=== PATIENT | male | born 1960 | race American Indian/Alaskan Native ===

== ENCOUNTER 2018-10-08 01:21 | Emergency (ER) | payer SELFPAY ==
[2018-10-08] MEDS ORDERED: NACL 0.9% 1000 ML 1,000 ML IV ONE ×2 (01:43→02:34)
[2018-10-08 02:06] LABS: Hematocrit 43.4 % (35.5-45.6); Hemoglobin 14.7 gm/dl (11.8-15.2); Mean Corpuscular HGB Conc 34 % (32-34); Mean Corpuscular Volume 89 fl (84-94); Platelet Count 172 K/mm3 (140-440); Red Blood Count 4.88 M/mm3 (3.65-5.03)
[2018-10-08 02:16] LABS: Alanine Aminotransferase 9 units/L (7-56); Albumin 3.6 g/dL (3.9-5); BUN/Creatinine Ratio 14; Blood Urea Nitrogen 13 mg/dL (9-20); Calcium 8.3 mg/dL (8.4-10.2); Hemolysis Index 7
[2018-10-08] MEDS ORDERED: ZOFRAN ONE (02:25)
[2018-10-08] MEDS ORDERED: ZOFRAN IV ONE (02:34)
--- NOTE | 2018-10-08 02:58 | XRay Report ---
FINAL REPORT PROCEDURE: XR ABDOMEN 1V AP TECHNIQUE: Abdominal radiograph, single supine AP view. HISTORY: abd pain COMPARISON: No prior studies are available for comparison. FINDINGS: Bowel gas pattern:Nonobstructive. Masses or calcifications:There has been previous cholecystectomy. Bony structures:No significant abnormality. Other:None. IMPRESSION: No acute abnormality
--- NOTE | 2018-10-08 02:58 | Emergency Department Report ---
ED General Adult HPI - General Chief complaint: Nausea/Vomiting/Diarrhea Stated complaint: FOOD POISON Time Seen by Provider: 10/08/18 02:32 Source: patient Mode of arrival: Ambulatory Limitations: No Limitations - History of Present Illness Initial comments: Patient is a 58-year-old male Presents with abdominal pain and cramping after eating [employer] restaurant today patient is 1 of 4 family members similar symptoms symptoms include n/v abdominal pain and crampting no diarrhea no fever or chills last n/v 8 pm last po intact 10 pm. symptom are exacerbated by po intake symptoms are relieved by nothing. pt is tolerating po liquids during thi s interview pain level described as 5/10 Onset/Timin -: days(s) Location: abdomen Radiation: non-radiation Severity scale (0 -10): 4 Quality: aching, other (cramping ) Consistency: intermittent Improves with: none Worsens with: eating Associated Symptoms: nausea/vomiting Treatments Prior to Arrival: none - Related Data Previous Rx's Medication Instructions Recorded Last Taken Type Dicyclomine [Bentyl] 10 mg PO QID PRN #20 capsule 10/08/18 Unknown Rx Naproxen 500 mg PO BID PRN #30 tablet 10/08/18 Unknown Rx Ondansetron [Zofran Odt] 4 mg PO Q8HR PRN #12 tab.rapdis 10/08/18 Unknown Rx Allergies Allergy/AdvReac Type Severity Reaction Status Date / Time No Known Allergies Allergy Verified 10/08/18 02:30 ED Review of Systems ROS: Stated complaint: FOOD POISON Other details as noted in HPI Constitutional: denies: chills, fever Eyes: denies: eye pain, eye discharge, vision change ENT: denies: ear pain, throat pain Respiratory: denies: cough, shortness of breath, wheezing Cardiovascular: denies: chest pain, palpitations Endocrine: no symptoms reported Gastrointestinal: abdominal pain, nausea, vomiting. denies: diarrhea, constipation, hematemesis, melena, hematochezia Genitourinary: denies: urgency, dysuria, frequency, hematuria Musculoskeletal: denies: back pain, joint swelling, arthralgia Skin: denies: rash, lesions Neurological: denies: headache, weakness, paresthesias Psychiatric: denies: anxiety, depression ED Past Medical Hx - Past Medical History Previous Medical History?: No - Surgical History Additional Surgical History: Broken Sternum - Social History Smoking Status: Never Smoker Substance Use Type: Marijuana - Medications Home Medications: Home Medications Medication Instructions Recorded Confirmed Last Taken Type Dicyclomine [Bentyl] 10 mg PO QID PRN #20 capsule 10/08/18 Unknown Rx Naproxen 500 mg PO BID PRN #30 tablet 10/08/18 Unknown Rx Ondansetron [Zofran Odt] 4 mg PO Q8HR PRN #12 tab.rapdis 10/08/18 Unknown Rx ED Physical Exam - General Limitations: No Limitations General appearance: alert, in no apparent distress - Head Head exam: Present: atraumatic, normocephalic - Eye Eye exam: Present: normal appearance - ENT ENT exam: Present: mucous membranes moist - Neck Neck exam: Present: normal inspection, full ROM - Respiratory Respiratory exam: Present: normal lung sounds bilaterally. Absent: respiratory distress, wheezes, stridor, chest wall tenderness - Cardiovascular Cardiovascular Exam: Present: regular rate, normal rhythm, normal heart sounds. Absent: systolic murmur, diastolic murmur, rubs, gallop - GI/Abdominal GI/Abdominal exam: Present: soft, normal bowel sounds. Absent: tenderness, guarding, rebound, bruit, hernia - Rectal Rectal exam: Present: deferred - exam: Present: normal inspection - Extremities Exam Extremities exam: Present: normal inspection - Back Exam Back exam: Present: normal inspection, full ROM, tenderness. Absent: CVA tenderness (R), CVA tenderness (L), muscle spasm - Neurological Exam Neurological exam: Present: alert, oriented X3, CN II-XII intact, normal gait - Psychiatric Psychiatric exam: Present: normal affect, normal mood - Skin Skin exam: Present: warm, dry, intact, normal color. Absent: rash ED Course Vital Signs 10/08/18 10/08/18 01:28 01:38 Temperature 97.3 F L 97.3 F L Pulse Rate 80 80 Respiratory 18 16 Rate Blood Pressure 121/74 121/74 O2 Sat by Pulse 95 98 Oximetry ED Medical Decision Making - Lab Data Result diagrams: 10/08/18 01:47 10/08/18 01:47 Labs 10/08/18 10/08/18 10/08/18 01:47 01:47 04:07 WBC 11.0 RBC 4.88 Hgb 14.7 Hct 43.4 MCV 89 MCH 30 MCHC 34 RDW 14.0 Plt Count 172 Lymph # [employer] Sodium 139 Potassium 4.0 Chloride 104.0 Carbon Dioxide 26 Anion Gap 13 BUN 13 Creatinine 0.9 Estimated GFR > 60 BUN/Creatinine Ratio 14 Glucose 168 H Calcium 8.3 L Total Bilirubin 0.30 AST 11 ALT 9 Alkaline Phosphatase 44 Total Protein 6.0 L Albumin 3.6 L Albumin/Globulin Ratio 1.5 Urine Bilirubin Neg Urine RBC (Auto) 1.0 U Epithel Cells (Auto) 1.0 - Radiology Data Radiology results: report reviewed, image reviewed FINDINGS: Bowel gas pattern:Nonobstructive. Masses or calcifications:There has been previous cholecystectomy. Bony structures:No significant abnormality. Other:None. IMPRESSION: No acute abnormality Transcribed By: [facility] Dictated By: ROQUE MAJOR MD Electronically Authenticated By: ROQUE MAJOR MD Signed Date/Time: 10/08/18 0258 - Medical Decision Making symptoms improved pt is tolerating po intake without n/v, KUB: non obstructive gas patten, cbc and cmp normal, plan: zofran, bentyl, naproxen follow up with [facility] in 2-3 days return to emergency if symptoms worsen. pt verbalized agreement and understanding of same. Critical care attestation.: If time is entered above; I have spent that time in minutes in the direct care of this critically ill patient, excluding procedure time. ED Disposition Clinical Impression: Nausea and vomiting Qualifiers: Vomiting type: unspecified Vomiting Intractability: non-intractable Qualified Code(s): R11.2 - Nausea with vomiting, unspecified Abdominal pain Qualifiers: Abdominal location: generalized Qualified Code(s): R10.84 - Generalized abdominal pain Disposition: - TO HOME OR SELFCARE Is pt being admited?: No Does the pt Need Aspirin: No Condition: Stable Instructions: Acute Nausea and Vomiting (ED), Abdominal Pain (ED) Prescriptions: Dicyclomine [Bentyl] 10 mg PO QID PRN #20 capsule PRN Reason: abdominal spasm Naproxen 500 mg PO BID PRN #30 tablet PRN Reason: pain Ondansetron [Zofran Odt] 4 mg PO Q8HR PRN #12 tab.rapdis PRN Reason: Nausea And Vomiting Referrals: [facility] [Outside] - 3-5 Days Forms: Work/School Release Form(ED) Time of Disposition: 05:04
[2018-10-08] MEDS ORDERED: TORADOL IV ONE (03:05)
[2018-10-08 04:16] LABS: Bilirubin,Urine NEG (Negative); Blood,Urine NEG (Negative); Color,Urine Yellow (Yellow); Mucus,Urine 1+ /HPF; Protein,Urine <15 mg/dL mg/dL (Negative); WBC,Urine < 1.0 /HPF (0.0-6.0)
[2018-10-08 06:58] LABS: Anisocytosis 1+; Band Neutrophils # (Manual) 0.2 K/mm3; Basophils % (Manual) 0 % (0.0-1.8); Eosinophils % (Manual) 0 % (0.0-4.3); Total Cells Counted 100
[2018-10-09 13:12] VITALS: BP 133/72
== END 2018-10-08 05:13 | disposition home or self-care (01) ==
LOC: ED 01:21
DX: R11.2 Nausea with vomiting, unspecified (principal); R10.84 Generalized abdominal pain; F12.10 Cannabis abuse, uncomplicated
CPT/HCPCS: 36415; 74018; 80053; 81001; 85007; 85025; 96361; 96374; 96375; 99284; J1885; J2405; J7030